=== PATIENT | female | born 1985 | race Caucasian/White ===

== ENCOUNTER 2021-04-02 16:06 | Emergency (ER) | payer OTHER ==
[~2021-04-02] VITALS: Ht 175.3 cm; Wt 145.2 kg
[~2021-04-02 16:06] MED LIST: AMOCLA500 PO; DIPH50 PO; IBUP800 PO; NITR100CA PO; OXYACE5T PO
== END 2021-04-02 17:59 | disposition home or self-care (01) ==
LOC: ER 16:06
DX: S90.31XA Contusion of right foot, initial encounter (principal); V00.811A Fall from moving wheelchair (powered), initial encounter
CPT/HCPCS: 73630; 99283-25